=== PATIENT | male | born 1980 | race Caucasian/White ===

== ENCOUNTER 2017-02-11 13:49 | Emergency (ER) | payer SELFPAY ==
[2017-02-11 14:33] VITALS: BP 132/62; PULSE 99; TEMP 98.4; BMI 28.1
--- NOTE | 2017-02-11 15:12 | PDOC ---
History of Present Illness <Fatoumata Tee - Last Filed: 02/11/17 15:24> - History of Present Illness Initial Comments: 02/11/17 15:28 The patient is a 36 year old male, with no significant past medical history, who presents to the emergency department with two insect bites on right buttock and right hip with redness to the skin of his right hip for the past 3 days. The patient reports the two small bites to his right buttock is surrounded by a quarter sized area of redness. He also reports redness to his right anterior hip which has extended to his right groin. He denies redness, pain or swelling to his genitals. He reports feeling an enlarged gland to his right inguinal area. The patient denies being in woodsy areas, but reports he works in construction. Also, he states he is recently with only one other sexual partner. He reports using condoms for protection against STD. He denies chest pain, shortness of breath, headache and dizziness. He denies fever, chills, nausea, vomit, diarrhea and constipation. He denies dysuria, frequency, urgency and hematuria. Allergies: Penicillin Social history: everyday tobacco use (8 cigarettes). Works in construction. <Josee Guzman - Last Filed: 02/11/17 15:33> - General Chief Complaint: Wound Stated Complaint: SKIN INFECTION Time Seen by Provider: 02/11/17 14:56 Past History - Past Medical History Other medical history: STAFF - Immunization History Immunization Up to Date: Yes - Psycho/Social/Smoking Cessation Hx Anxiety: No Suicidal Ideation: No Smoking Status: Yes Smoking History: Current every day smoker Have you smoked in the past 12 months: Yes Number of Cigarettes Smoked Daily: 8 Information on smoking cessation initiated: Yes 'Breaking Loose' booklet given: 02/11/17 Hx Alcohol Use: No Drug/Substance Use Hx: No Substance Use Type: None <Fatoumata Tee - Last Filed: 02/11/17 15:24> <Josee Guzman - Last Filed: 02/11/17 15:33> - Past Medical History Allergies/Adverse Reactions: Allergies Allergy/AdvReac Type Severity Reaction Status Date / Time Penicillins Allergy Verified 02/11/17 14:54 Home Medications: Ambulatory Orders Sulfamethoxazole/Trimethoprim [Bactrim Ds -] 1 tab PO BID #10 tablet 02/11/17 Review of Systems - Review of Systems Able to Perform ROS?: Yes Comments:: 02/11/17 15:29 CONSTITUTIONAL: Absent: fever, chills, diaphoresis, generalized weakness, malaise, loss of appetite HEENT: Absent: rhinorrhea, nasal congestion, throat pain, throat swelling, difficulty swallowing, mouth swelling, ear pain, eye pain, visual Changes CARDIOVASCULAR: Absent: chest pain, syncope, palpitations, irregular heart rate, lightheadedness , peripheral edema RESPIRATORY: Absent: cough, shortness of breath, dyspnea with exertion, orthopnea, wheezing, stridor, hemoptysis GASTROINTESTINAL: Absent: abdominal pain, abdominal distension, nausea, vomiting, diarrhea, constipation, melena, hematochezia GENITOURINARY: Absent: dysuria, frequency, urgency, hesitancy, hematuria, flank pain, genital pain MUSCULOSKELETAL: Absent: myalgia, arthralgia, joint swelling SKIN: (+) insect bites. Absent: itching, pallor HEMATOLOGIC/IMMUNOLOGIC: Absent: easy bleeding, easy bruising, lymphadenopathy, frequent infections ENDOCRINE: Absent: unexplained weight gain, unexplained weight loss, heat intolerance, cold intolerance NEUROLOGIC: Absent: headache, focal weakness or paresthesias, dizziness, unsteady gait, seizure, mental status changes, bladder or bowel incontinence PSYCHIATRIC: Absent: anxiety, depression, suicidal or homicidal ideation, hallucinations. <Josee Guzman - Last Filed: 02/11/17 15:33> *Physical Exam - Vital Signs Last Vital Signs Temp Pulse Resp BP Pulse Ox 98.4 F 99 H 20 132/62 99 02/11/17 13:50 02/11/17 13:50 02/11/17 13:50 02/11/17 13:50 02/11/17 13:50 <Fatoumata Tee - Last Filed: 02/11/17 15:24> - Vital Signs Last Vital Signs Temp Pulse Resp BP Pulse Ox 98.4 F 99 H 20 132/62 99 02/11/17 13:50 02/11/17 13:50 02/11/17 13:50 02/11/17 13:50 02/11/17 13:50 - Physical Exam Comments: 02/11/17 15:33 GENERAL: Well developed, well nourished. Awake and alert. No acute distress. HEENT: Normocephalic, atraumatic. PERRLA, EOMI. No conjunctival pallor. Sclera are non- icteric. Moist mucous membranes. Oropharynx is clear. NECK: Supple. Full ROM. No JVD. Carotid pulses 2+ and symmetric, without bruits. No thyromegaly. No lymphadenopathy. CARDIOVASCULAR: Regular rate and rhythm. No murmurs, rubs, or gallops. Distal pulses are 2+ and symmetric. PULMONARY: No evidence of respiratory distress. Lungs clear to auscultation bilaterally. No wheezing, rales or rhonchi. ABDOMINAL: Soft. Non-tender. Non-distended. No rebound or guarding. No organomegaly. Normoactive bowel sounds. MUSCULOSKELETAL Normal range of motion at all joints. No bony deformities or tenderness. No CVA tenderness. EXTREMITIES: No cyanosis. No clubbing. No edema. No calf tenderness. SKIN: (+) Right hip/buttock there are 5 insect bites, one in a group of 3 the other in a group of 2, no vesicles down the leg, 1 cm lymph node in right groin, 0.5 cm lymph node in left groin. Warm and dry. Normal capillary refill. No jaundice. Faint erythema to the anterior right hip (patient attributes to ice pack being placed to the area). NEUROLOGICAL: Alert, awake, appropriate. Cranial nerves 2-12 intact. Normoreflexic in the upper and lower extremities. Normal speech. Toes are down-going bilaterally. Gait is normal without ataxia. PSYCHIATRIC: Cooperative. Good eye contact. Appropriate mood and affect. GENITAL: (+) opening of the internal right ring - inguinal hernia defect. No strangulation. No incarceration. No testicular tenderness or erythema. <Josee Guzman - Last Filed: 02/11/17 15:33> *DC/Admit/Observation/Transfer - Discharge Dispostion Admit: No <Fatoumata Tee - Last Filed: 02/11/17 15:24> - Attestations Scribe Attestion: 02/11/17 15:33 Documentation prepared by Josee Guzman, acting as manager medical writing for Fatoumata Tee MD <Josee Guzman - Last Filed: 02/11/17 15:33> Diagnosis at time of Disposition: Bug bite, Lymph node enlargement, Cellulitis of skin, Inguinal hernia - Discharge Dispostion Disposition: HOME Condition at time of disposition: Stable - Prescriptions Prescriptions: Sulfamethoxazole/Trimethoprim [Bactrim Ds -] 1 tab PO BID #10 tablet
[2017-02-11] MEDS ORDERED: SULFAMETHOXAZOLE/TRIMETHOPRIM 800MG/160MG D.S. TABLET PO ONE (15:21)
[2017-02-11] MEDS ORDERED: SULFAMETHOXAZOLE/TRIMETHOPRIM 800MG/160MG D.S. TABLET ONE (15:29)
== END 2017-02-11 15:56 | disposition home or self-care (01) ==
LOC: FER 13:49
DX: S30.860A Insect bite (nonvenomous) of lower back and pelvis, initial encounter (principal); L03.317 Cellulitis of buttock; K46.9 Unspecified abdominal hernia without obstruction or gangrene; R59.9 Enlarged lymph nodes, unspecified; F17.210 Nicotine dependence, cigarettes, uncomplicated
CPT/HCPCS: 36415; 87491; 87591; 99281-25

== ENCOUNTER 2018-07-10 11:29 | Emergency (ER) | payer OTHER ==
--- NOTE | 2018-07-10 11:32 | PDOC ---
History of Present Illness - General Chief Complaint: Injury Stated Complaint: RIGHT ELBOW PAIN Time Seen by Provider: 07/10/18 11:32 - History of Present Illness Initial Comments: 07/10/18 12:03 Chief complaint: Pain right elbow History of present illness: Patient slipped on the ice this morning, broke his fall with an outstretched right arm, subsequent elbow pain, mostly over the radial head and olecranon. No distal numbness tingling pain or weakness in the forearm hand or fingers. Review of systems: As above. Otherwise negative. Denies injury or pain to the head neck chest abdomen spine pelvis or other extremities. Denies any difficulty ambulating or pain with walking. Past medical history: Healthy male, no active medical or surgical problems Social/family history reviewed and noncontributory. Physical exam: Alert and oriented well-developed well-nourished no acute distress cooperative Afebrile vital signs normal Right elbow: No deformity, swelling, or effusion is present. There is tenderness over the radial head and the olecranon process. There is perhaps a few degrees of lack of extension. There is pain with full extension and supination/pronation. Distal pulses full. No distal sensory deficits. No distal motor deficits. No visible or palpable trauma to the hand or wrist forearm upper arm or shoulder. Impression: Possible occult radial head fracture. Elbow sprain. X-ray and further evaluation depending on results. Past History - Past Medical History Allergies/Adverse Reactions: Allergies Allergy/AdvReac Type Severity Reaction Status Date / Time Penicillins Allergy Intermediate Hives Verified 07/10/18 11:30 Home Medications: Ambulatory Orders NK [No Known Home Medication] 07/10/18 - Immunization History Immunization Up to Date: Yes - Suicide/Smoking/Psychosocial Hx Smoking Status: Yes Smoking History: Current every day smoker Have you smoked in the past 12 months: Yes Number of Cigarettes Smoked Daily: 8 'Breaking Loose' booklet given: 02/11/17 Hx Alcohol Use: No Drug/Substance Use Hx: No Substance Use Type: None Medical Decision Making - Medical Decision Making 07/10/18 13:14 X-ray reviewed by radiologist. Soft tissue calcifications, chronic, but no acute fracture or dislocation. *DC/Admit/Observation/Transfer Diagnosis at time of Disposition: Sprain of elbow, right Qualifiers: Encounter type: initial encounter Qualified Code(s): S53.401A - Unspecified sprain of right elbow, initial encounter - Discharge Dispostion Disposition: HOME Condition at time of disposition: Stable Decision to Admit order: No - Referrals Referrals: Raul Dang MD [Staff Physician] - - Patient Instructions Printed Discharge Instructions: DI for Elbow Sprain Additional Instructions: Rest, ice, ibuprofen, Advil, Motrin, Aleve, Naprosyn to reduce inflammation Avoid strain for approximately 1 week or until pain completely resolves See orthopedist for further evaluation if pain persists or worsens - Post Discharge Activity
[2018-07-10 11:43] VITALS: BP 114/65; PULSE 68; TEMP 98.9; BMI 28.1
[2018-07-10] MEDS ORDERED: IBUPROFEN 400 MG TABLET (FP) PO ONE ×2 (12:07→12:09)
== END 2018-07-10 13:20 | disposition home or self-care (01) ==
LOC: FER 11:29
DX: S53.401A Unspecified sprain of right elbow, initial encounter (principal); W00.0XXA Fall on same level due to ice and snow, initial encounter; Y93.89 Activity, other specified; Y92.89 Other specified places as the place of occurrence of the external cause; F17.210 Nicotine dependence, cigarettes, uncomplicated
CPT/HCPCS: 73070-TC-RT-FY; 99281-25

== ENCOUNTER 2020-09-29 09:36 | Emergency (ER) | payer OTHER ==
[2020-09-29 09:44] VITALS: BP 125/78; PULSE 75; TEMP 97.9; BMI 27.3
[2020-09-29] MEDS ORDERED: KETOROLAC TROMETHAMINE 30 MG/1 ML VIAL IM ONE (09:55)
[2020-09-29] MEDS ORDERED: KETOROLAC TROMETHAMINE 30 MG/1 ML VIAL ONE (10:00)
== END 2020-09-29 10:18 | disposition home or self-care (01) ==
LOC: FER 09:36
PROC: 3E0233Z Introduction of Anti-inflammatory into Muscle, Percutaneous Approach (ICD-10-PCS; principal; 2020-09-29)
DX: M54.2 Cervicalgia (principal)
CPT/HCPCS: 99284-25

== ENCOUNTER 2020-10-12 16:23 | Emergency (ER) | payer OTHER ==
[2020-10-12 16:40] VITALS: BP 123/67; PULSE 72; TEMP 98.1; BMI 27.3
== END 2020-10-12 17:03 | disposition home or self-care (01) ==
LOC: FER 16:23
PROC: 0HQDXZZ Repair Right Lower Arm Skin, External Approach (ICD-10-PCS; principal; 2020-10-12)
DX: S51.811A Laceration without foreign body of right forearm, initial encounter (principal)
CPT/HCPCS: 99282-25

== ENCOUNTER 2020-10-18 17:15 | Emergency (ER) | payer OTHER ==
[2020-10-18 17:24] VITALS: BP 113/86; PULSE 89; TEMP 97.8; BMI 27.3
== END 2020-10-18 17:55 | disposition home or self-care (01) ==
LOC: FER 17:15
DX: L03.113 Cellulitis of right upper limb (principal)
CPT/HCPCS: 99283-25

== ENCOUNTER 2022-01-29 18:53 | Emergency (ER) | payer OTHER ==
[2022-01-29 19:06] VITALS: BP 118/78; PULSE 76; RESP 18; TEMP 98.7; BMI 27.3
[2022-01-29] MEDS ORDERED: DIPHTH,PERTUSS(ACELL),TET 0.5 ML DISP.SYRIN IM ONE ×2 (19:32→19:45)
[2022-01-29] MEDS ORDERED: SULFAMETHOXAZOLE/TRIMETHOPRIM 800MG/160MG D.S. TABLET PO ONE (19:33)
[2022-01-29] MEDS ORDERED: SULFAMETHOXAZOLE/TRIMETHOPRIM 800MG/160MG D.S. TABLET ONE (19:45)
== END 2022-01-29 19:50 | disposition home or self-care (01) ==
LOC: FER 18:53
PROC: 0HQ1XZZ Repair Face Skin, External Approach (ICD-10-PCS; principal; 2022-01-29)
PROC: 3E0234Z Introduction of Serum, Toxoid and Vaccine into Muscle, Percutaneous Approach (ICD-10-PCS; 2022-01-29)
DX: S01.111A Laceration without foreign body of right eyelid and periocular area, initial encounter (principal); W26.8XXA Contact with other sharp object(s), not elsewhere classified, initial encounter
CPT/HCPCS: 12011-25; 90471; 90715; 99283-25